=== PATIENT | female | born 1995 | race Caucasian/White ===

== ENCOUNTER 2017-09-05 21:51 | Emergency (ER) | payer SELFPAY, MEDICAID | END 2017-09-06 02:06 | disposition left against medical advice (07) | LOC: FTE 21:51 | DX: Z53.21 Procedure and treatment not carried out due to patient leaving prior to being seen by health care provider (principal) ==

== ENCOUNTER 2018-02-10 12:04 | Emergency (ER) | payer MEDICAID ==
[2018-02-10 14:19] LABS: ADD MAN DIFF? NO
[2018-02-10 14:23] LABS: BASOPHILS % 0.4 % (0.0-2.0); EOSINOPHILS # 0.1 10^3/ul (0.0-0.5); EOSINOPHILS % 1.6 % (0.0-7.0); HEMATOCRIT 36.9 % (37.0-47.0); LYMPHOCYTES # 1.7 10^3/ul (0.8-2.9); MEAN CORPUSCULAR HEMOGLOBIN 29.3 pg (29.0-33.0); MEAN CORPUSCULAR HGB CONC 32.5 g/dl (32.0-37.0); MEAN PLATELET VOLUME 9.2 fl (7.4-10.4); MONOCYTE # 0.5 10^3/ul (0.3-0.9); MONOCYTES % 6.2 % (0.0-11.0); NEUTROPHIL # 5.2 10^3/ul (1.6-7.5); NEUTROPHILS % 68.5 % (39.0-77.0); PLATELET COUNT 317 10^3/UL (140-415); RED CELL DISTRIBUTION WIDTH 13.2 % (11.5-14.5)
[2018-02-10 14:23] LABS: WHITE BLOOD COUNT 7.5 10^3/ul (4.8-10.8)
[2018-02-10 14:28] LABS: ADD UMIC NO; UR ASCORBIC ACID 20 mg/dL (NEGATIVE); UR BACTERIA FEW /HPF (NONE SEEN); UR BILIRUBIN (Dip) NEGATIVE (NEGATIVE); UR BLOOD (Dip) NEGATIVE (NEGATIVE); UR CLARITY SLIGHTLY CLOUDY (CLEAR); UR COLOR YELLOW (YELLOW); UR GLUCOSE (Dip) NEGATIVE (NEGATIVE); UR KETONES (Dip) NEGATIVE (NEGATIVE); UR LEUKOCYTE ESTERASE (Dip) NEGATIVE Leu/ul (NEGATIVE); UR MUCUS FEW /HPF (NONE SEEN); UR NITRITE (Dip) NEGATIVE (NEGATIVE); UR RBC 0 /HPF (0-5); UR SPECIFIC GRAVITY (Dip) 1.014 (1.003-1.030); UR SQUAMOUS EPITHELIAL CELL FEW /HPF (FEW); UR TOTAL PROTEIN (Dip) NEGATIVE (NEGATIVE); UR UROBILINOGEN (Dip) NEGATIVE (NEGATIVE); UR WBC 1 /HPF (0-5)
[2018-02-10 15:57] LABS: OCCULT BLOOD STOOL NEGATIVE (NEGATIVE)
== END 2018-02-10 17:10 | disposition home or self-care (01) ==
LOC: FTE 12:04
DX: O99.89 Other specified diseases and conditions complicating pregnancy, childbirth and the puerperium (principal); R10.2 Pelvic and perineal pain; R19.7 Diarrhea, unspecified; Z3A.01 Less than 8 weeks gestation of pregnancy
CPT/HCPCS: 36415; 76801; 76817; 81001; 81003; 82270; 84702; 85025; 86900; 86901; 99284-25

== ENCOUNTER 2018-02-13 12:17 | Emergency (ER) | payer MEDICAID | END 2018-02-13 14:46 | disposition home or self-care (01) | LOC: FTE 12:17 | DX: O34.81 Maternal care for other abnormalities of pelvic organs, first trimester (principal); N83.202 Unspecified ovarian cyst, left side; R10.2 Pelvic and perineal pain; Z3A.01 Less than 8 weeks gestation of pregnancy | CPT/HCPCS: 76801; 76817; 84702; 99284-25 ==

== ENCOUNTER 2018-06-13 17:28 | Outpatient (CLI) | payer MEDICAID ==
[2018-06-13 18:07] LABS: ADD MAN DIFF? NO
[2018-06-13 18:11] LABS: WHITE BLOOD COUNT 11.1 10^3/ul (4.8-10.8)
[2018-06-13 18:11] LABS: BASOPHILS % 0.2 % (0.0-2.0); EOSINOPHILS # 0.1 10^3/ul (0.0-0.5); EOSINOPHILS % 0.5 % (0.0-7.0); HEMATOCRIT 30.8 % (37.0-47.0); LYMPHOCYTES # 1.4 10^3/ul (0.8-2.9); LYMPHOCYTES % 12.4 % (15.0-51.0); MEAN CORPUSCULAR HEMOGLOBIN 28.9 pg (29.0-33.0); MEAN CORPUSCULAR HGB CONC 32.5 g/dl (32.0-37.0); MEAN PLATELET VOLUME 9.5 fl (7.4-10.4); MONOCYTE # 0.7 10^3/ul (0.3-0.9); MONOCYTES % 6.3 % (0.0-11.0); NEUTROPHIL # 8.9 10^3/ul (1.6-7.5); NEUTROPHILS % 80.1 % (39.0-77.0); PLATELET COUNT 304 10^3/UL (140-415); RED BLOOD COUNT 3.46 10^6/ul (4.20-5.40); RED CELL DISTRIBUTION WIDTH 13.2 % (11.5-14.5)
[2018-06-13 18:15] LABS: ADD UMIC YES; UR ASCORBIC ACID NEGATIVE (NEGATIVE); UR BACTERIA FEW /HPF (NONE SEEN); UR BILIRUBIN (Dip) NEGATIVE (NEGATIVE); UR BLOOD (Dip) NEGATIVE (NEGATIVE); UR CLARITY SLIGHTLY CLOUDY (CLEAR); UR COLOR YELLOW (YELLOW); UR GLUCOSE (Dip) NEGATIVE (NEGATIVE); UR KETONES (Dip) NEGATIVE (NEGATIVE); UR LEUKOCYTE ESTERASE (Dip) TRACE Leu/ul (NEGATIVE); UR MUCUS FEW /HPF (NONE SEEN); UR NITRITE (Dip) NEGATIVE (NEGATIVE); UR RBC 0 /HPF (0-5); UR SQUAMOUS EPITHELIAL CELL FEW /HPF (FEW); UR TOTAL PROTEIN (Dip) NEGATIVE (NEGATIVE); UR UROBILINOGEN (Dip) 2+ mg/dL (NEGATIVE); UR WBC 4 /HPF (0-5)
== END 2018-06-13 21:05 | disposition home or self-care (01) ==
LOC: OBT 17:28 → L-D 17:29 → OBT 21:05
DX: O26.852 Spotting complicating pregnancy, second trimester (principal); Z3A.23 23 weeks gestation of pregnancy
CPT/HCPCS: 76815; 76817; 81001; 85025; 86850; 86900; 86901

== ENCOUNTER 2018-07-20 09:04 | Outpatient (CLI) | payer MEDICAID | END 2018-07-20 10:06 | disposition home or self-care (01) | LOC: OBT 09:04 → L-D 09:04 → OBT 10:06 | DX: O26.893 Other specified pregnancy related conditions, third trimester (principal); R05 Cough; R10.30 Lower abdominal pain, unspecified; Z3A.28 28 weeks gestation of pregnancy | CPT/HCPCS: 76815 ==

== ENCOUNTER 2018-08-24 18:38 | Outpatient (CLI) | payer MEDICAID ==
[2018-08-24 20:57] LABS: ADD UMIC NO; UR ASCORBIC ACID NEGATIVE (NEGATIVE); UR BILIRUBIN (Dip) NEGATIVE (NEGATIVE); UR BLOOD (Dip) NEGATIVE (NEGATIVE); UR CLARITY CLEAR (CLEAR); UR COLOR STRAW (YELLOW); UR GLUCOSE (Dip) NEGATIVE (NEGATIVE); UR KETONES (Dip) NEGATIVE (NEGATIVE); UR LEUKOCYTE ESTERASE (Dip) NEGATIVE Leu/ul (NEGATIVE); UR NITRITE (Dip) NEGATIVE (NEGATIVE); UR TOTAL PROTEIN (Dip) NEGATIVE (NEGATIVE); UR UROBILINOGEN (Dip) NEGATIVE (NEGATIVE)
[2018-08-24] MEDS: LACTATED RINGER'S 1,000 ML IV (22:23)
[2018-08-24] MEDS: ACETAMINOPHEN 500 MG TAB PO (22:26)
== END 2018-08-25 02:06 | disposition home or self-care (01) ==
LOC: OBT 18:38 → L-D 18:41
DX: O62.9 Abnormality of forces of labor, unspecified (principal); Z3A.33 33 weeks gestation of pregnancy
CPT/HCPCS: 76817; 76818; 81003; 96360; 96361

== ENCOUNTER 2018-09-09 16:10 | Outpatient (CLI) | payer MEDICAID ==
[2018-09-09] MEDS: LACTATED RINGER'S 1,000 ML IV ×2 (19:09→20:50)
== END 2018-09-09 21:30 | disposition home or self-care (01) ==
LOC: OBT 16:10 → L-D 16:11 → OBT 21:30
DX: O36.8130 Decreased fetal movements, third trimester, not applicable or unspecified (principal); Z3A.36 36 weeks gestation of pregnancy
CPT/HCPCS: 76816; 76818; 96360; 96361

== ENCOUNTER 2018-09-20 16:06 | Outpatient (CLI) | payer MEDICAID ==
[2018-09-20 17:06] LABS: RUPTURE FETAL MEMBRANES NEGATIVE (NEGATIVE)
== END 2018-09-20 18:25 | disposition home or self-care (01) ==
LOC: OBT 16:06 → L-D 16:07 → OBT 18:25
DX: O41.93X0 Disorder of amniotic fluid and membranes, unspecified, third trimester, not applicable or unspecified (principal); Z3A.37 37 weeks gestation of pregnancy
CPT/HCPCS: 76818; 84112

== ENCOUNTER 2018-09-28 19:12 | Outpatient (CLI) | payer MEDICAID ==
[2018-09-28 20:27] LABS: ADD UMIC NO; UR ASCORBIC ACID NEGATIVE (NEGATIVE); UR BACTERIA FEW /HPF (NONE SEEN); UR BILIRUBIN (Dip) NEGATIVE (NEGATIVE); UR BLOOD (Dip) NEGATIVE (NEGATIVE); UR CLARITY SLIGHTLY CLOUDY (CLEAR); UR COLOR YELLOW (YELLOW); UR GLUCOSE (Dip) 1+ mg/dL (NEGATIVE); UR KETONES (Dip) NEGATIVE (NEGATIVE); UR LEUKOCYTE ESTERASE (Dip) NEGATIVE Leu/ul (NEGATIVE); UR NITRITE (Dip) NEGATIVE (NEGATIVE); UR RBC 0 /HPF (0-5); UR SPECIFIC GRAVITY (Dip) 1.011 (1.003-1.030); UR SQUAMOUS EPITHELIAL CELL FEW /HPF (FEW); UR TOTAL PROTEIN (Dip) NEGATIVE (NEGATIVE); UR UROBILINOGEN (Dip) 1+ mg/dL (NEGATIVE); UR WBC 1 /HPF (0-5)
[2018-09-28 20:35] LABS: ADD MAN DIFF? NO
[2018-09-28 20:37] LABS: WHITE BLOOD COUNT 5.6 10^3/ul (4.8-10.8)
[2018-09-28 20:37] LABS: BASOPHILS % 0.4 % (0.0-2.0); EOSINOPHILS # 0.1 10^3/ul (0.0-0.5); EOSINOPHILS % 1.4 % (0.0-7.0); HEMATOCRIT 28.4 % (37.0-47.0); HEMOGLOBIN 8.8 g/dl (12.0-16.0); LYMPHOCYTES # 1.5 10^3/ul (0.8-2.9); LYMPHOCYTES % 27.3 % (15.0-51.0); MEAN CORPUSCULAR HEMOGLOBIN 25.1 pg (29.0-33.0); MEAN CORPUSCULAR VOLUME 80.9 fl (82.0-101.0); MEAN PLATELET VOLUME 9.8 fl (7.4-10.4); MONOCYTE # 0.7 10^3/ul (0.3-0.9); MONOCYTES % 12.2 % (0.0-11.0); NEUTROPHIL # 3.3 10^3/ul (1.6-7.5); PLATELET COUNT 322 10^3/UL (140-415); RED BLOOD COUNT 3.51 10^6/ul (4.20-5.40)
== END 2018-09-28 21:05 | disposition home or self-care (01) ==
LOC: OBT 19:12 → L-D 19:14 → OBT 21:05
DX: O26.893 Other specified pregnancy related conditions, third trimester (principal); Z3A.38 38 weeks gestation of pregnancy; R10.2 Pelvic and perineal pain
CPT/HCPCS: 76818; 81001; 81003; 85025

== ENCOUNTER 2018-10-01 13:10 | Inpatient (IN) | payer MEDICAID ==
[2018-10-01] MEDS ORDERED: IBUPROFEN 600 MG TAB PO (15:00)
[2018-10-01] MEDS ORDERED: CARBOPROST 250 MCG INJ IM (15:00)
[2018-10-01] MEDS ORDERED: MISOPROSTOL 200 MCG TAB PR (15:00)
[2018-10-01] MEDS ORDERED: OXYTOCIN 30 UNITS/LR 500 ML IV ×2 (15:00)
[2018-10-01] MEDS ORDERED: METHYLERGONOVINE 0.2 MG INJ IM (15:00)
[2018-10-01] MEDS ORDERED: BUTORPHANOL 1 MG INJ IV (15:00)
[2018-10-01] MEDS ORDERED: LIDOCAINE 1% (MPF) 30 ML INJ INJ (15:00)
[2018-10-01] MEDS: LACTATED RINGER'S 1,000 ML IV ×2 (16:19→23:19)
[2018-10-01 16:21] LABS: RUPTURE FETAL MEMBRANES NEGATIVE (NEGATIVE)
[2018-10-01 16:31] LABS: ADD MAN DIFF? NO
[2018-10-01 16:38] LABS: BASOPHILS % 0.3 % (0.0-2.0); EOSINOPHILS # 0.1 10^3/ul (0.0-0.5); EOSINOPHILS % 1.2 % (0.0-7.0); HEMATOCRIT 29.9 % (37.0-47.0); HEMOGLOBIN 9.2 g/dl (12.0-16.0); LYMPHOCYTES # 1.7 10^3/ul (0.8-2.9); LYMPHOCYTES % 21.5 % (15.0-51.0); MEAN CORPUSCULAR HEMOGLOBIN 24.9 pg (29.0-33.0); MEAN CORPUSCULAR HGB CONC 30.8 g/dl (32.0-37.0); MEAN CORPUSCULAR VOLUME 80.8 fl (82.0-101.0); MEAN PLATELET VOLUME 10.2 fl (7.4-10.4); MONOCYTE # 0.5 10^3/ul (0.3-0.9); MONOCYTES % 6.3 % (0.0-11.0); NEUTROPHIL # 5.4 10^3/ul (1.6-7.5); NEUTROPHILS % 70.2 % (39.0-77.0); PLATELET COUNT 346 10^3/UL (140-415); RED CELL DISTRIBUTION WIDTH 15.1 % (11.5-14.5)
[2018-10-01 16:38] LABS: WHITE BLOOD COUNT 7.7 10^3/ul (4.8-10.8)
[2018-10-01 16:59] LABS: INR 0.94; PROTIME 12.7 Sec (11.9-14.9)
[2018-10-01] MEDS: MISOPROSTOL 50 MCG CAPSULE PO ×2 (17:27→21:37)
[2018-10-01 17:40] LABS: HEPATITIS B SURFACE ANTIGEN NEGATIVE (NEGATIVE)
[2018-10-01] MEDS: BUTORPHANOL 2 MG INJ IV (22:37)
[2018-10-02] MEDS: MISOPROSTOL 50 MCG CAPSULE PO (01:34)
[2018-10-02] MEDS: LACTATED RINGER'S 1,000 ML IV ×3 (06:40→20:38)
[2018-10-02] MEDS ORDERED: FENTAnyl 2MCG/ML-ROPIV 0.2% 100 ML (07:32)
[2018-10-02] MEDS ORDERED: NALBUPHINE HCL (10 MG/1 ML) INJ IV (08:00)
[2018-10-02] MEDS ORDERED: DIPHENHYDRAMINE 50 MG INJ IV (08:00)
[2018-10-02] MEDS ORDERED: ONDANSETRON 4 MG INJ IV (08:00)
[2018-10-02] MEDS ORDERED: NALOXONE (0.4 MG/ML) INJ IV (08:00)
[2018-10-02] MEDS: OXYTOCIN 30 UNITS/LR 500 ML IV ×2 (08:29→22:04)
[2018-10-02 15:03] LABS: RAPID PLASMA REAGIN NONREACTIVE (NR)
[2018-10-02] MEDS: FENTAnyl 2MCG/ML-ROPIV 0.2% 100 ML BAG EPI (15:21)
[2018-10-02] MEDS ORDERED: MINERAL OIL LIGHT 10 ML VIAL TOP (21:00)
[2018-10-03] MEDS ORDERED: ZOLPIDEM 5 MG TAB PO (00:30)
[2018-10-03] MEDS ORDERED: MISOPROSTOL 200 MCG TAB PR (00:30)
[2018-10-03] MEDS ORDERED: OXYTOCIN 30 UNITS/LR 500 ML IV (00:30)
[2018-10-03] MEDS ORDERED: OXYCODONE/ASPIRIN (4.88/325) TAB PO ×2 (00:30)
[2018-10-03] MEDS ORDERED: METHYLERGONOVINE 0.2 MG INJ IM (00:30)
[2018-10-03] MEDS ORDERED: CARBOPROST 250 MCG INJ IM (00:30)
[2018-10-03] MEDS: LANOLIN HPA 1 PKT TOP (00:38)
[2018-10-03] MEDS: BENZOCAINE 20% 56 ML SPRAY TOP (00:38)
[2018-10-03] MEDS: IBUPROFEN 600 MG TAB PO ×4 (00:38→17:43)
[2018-10-03] MEDS: WITCH HAZEL/GLYCERIN PAD PR (00:39)
[2018-10-03 06:46] LABS: ADD MAN DIFF? NO
[2018-10-03 06:56] LABS: WHITE BLOOD COUNT 9.8 10^3/ul (4.8-10.8)
[2018-10-03 06:56] LABS: BASOPHILS % 0.2 % (0.0-2.0); EOSINOPHILS # 0.1 10^3/ul (0.0-0.5); EOSINOPHILS % 1.4 % (0.0-7.0); HEMATOCRIT 28.3 % (37.0-47.0); HEMOGLOBIN 8.8 g/dl (12.0-16.0); LYMPHOCYTES # 1.9 10^3/ul (0.8-2.9); MEAN CORPUSCULAR HEMOGLOBIN 24.6 pg (29.0-33.0); MEAN CORPUSCULAR HGB CONC 31.1 g/dl (32.0-37.0); MEAN CORPUSCULAR VOLUME 79.3 fl (82.0-101.0); MEAN PLATELET VOLUME 10.6 fl (7.4-10.4); MONOCYTES % 9.9 % (0.0-11.0); NEUTROPHIL # 6.8 10^3/ul (1.6-7.5); PLATELET COUNT 287 10^3/UL (140-415); RED BLOOD COUNT 3.57 10^6/ul (4.20-5.40)
[2018-10-03] MEDS: SENNA/DOCUSATE NA (8.6MG/50MG) TAB PO ×2 (09:04→20:49)
[2018-10-03] MEDS: FERROUS GLUCONATE (EC) 325 MG TAB PO (20:49)
[2018-10-04] MEDS: IBUPROFEN 600 MG TAB PO ×3 (06:00→12:00)
[2018-10-04] MEDS: FERROUS GLUCONATE (EC) 325 MG TAB PO ×2 (09:01→14:00)
[2018-10-04] MEDS: SENNA/DOCUSATE NA (8.6MG/50MG) TAB PO (09:01)
[2018-10-04] MEDS: DIPHTH/TET/ACEL PERTUSS (ADULT) 0.5 ML VIAL IM* (09:06)
== END 2018-10-04 14:52 | disposition home or self-care (01) | DRG 807 ==
LOC: OBT 13:10 → PP1 10-02 23:48 → L-D 13:10 → OBT 14:43 → L-D 14:43
PROVIDERS: Obstetrics & Gynecology
PROC: 10E0XZZ Delivery of Products of Conception, External Approach (ICD-10-PCS; principal; 2018-10-02)
DX: O41.03X0 Oligohydramnios, third trimester, not applicable or unspecified (principal); Z37.0 Single live birth; O36.8130 Decreased fetal movements, third trimester, not applicable or unspecified; O69.81X0 Labor and delivery complicated by cord around neck, without compression, not applicable or unspecified; Z3A.39 39 weeks gestation of pregnancy; Z23 Encounter for immunization
CPT/HCPCS: 62319; 76816; 76818; 84112; 85025; 85610; 85730; 86592; 86850; 86900; 86901; 87340; 90686; 90715

== ENCOUNTER 2019-01-26 09:39 | Emergency (ER) | payer MEDICAID | END 2019-01-26 10:29 | disposition home or self-care (01) | LOC: FTE 09:39 | DX: K59.1 Functional diarrhea (principal) | CPT/HCPCS: 99282; Z7502 ==